=== PATIENT | female | born 1935 | race Asian ===

== ENCOUNTER 2020-09-18 11:53 | Emergency (ER) | payer MEDICARE, OTHER ==
[~2020-09-18] VITALS: Ht 154.9 cm; Wt 63.6 kg
[2020-09-18] MEDS ORDERED: CARV3 PO (11:59)
[2020-09-18] MEDS ORDERED: AMLO-257 PO (11:59)
[2020-09-18] MEDS ORDERED: LOSA25TA21 PO (11:59)
[2020-09-18 12:31] LABS: PLATELET COUNT (AUTO) 192 K/uL (150-450)
[2020-09-18 12:48] LABS: CALCIUM, TOTAL 9.4 mg/dL (8.8-10.5); CREATININE 1.02 mg/dL (0.60-1.30); POTASSIUM 4.3 mmol/L (3.5-5.1)
[2020-09-18 12:51] LABS: ALBUMIN 4.3 g/dL (3.4-5.0); BILIRUBIN,TOTAL 0.5 mg/dL (0.1-1.0); TOTAL PROTEIN, SERUM 8.8 g/dL (6.4-8.2)
[2020-09-18 12:54] LABS: BASOPHILS % (AUTO) 0.9 % (0.0-2.0); EOSINOPHILS % (AUTO) 1.2 % (1.0-6.0); HEMATOCRIT 41.7 % (36-46); HEMOGLOBIN 14.1 g/dL (12.0-16.0); LYMPHOCYTES % (AUTO) 27.9 % (22.0-44.0); MEAN CORPUSCULAR HEMOGLOBIN 30.4 pg (26.0-34.0); MEAN CORPUSCULAR HGB CONC 33.7 G/dL (31.0-37.0); MEAN CORPUSCULAR VOLUME 90 fL (80-100); MONOCYTES # (AUTO) 0.7 K/uL (0.1-1.0); MONOCYTES % (AUTO) 9.1 % (2.0-9.0); NEUTROPHILS # (AUTO) 4.4 K/uL (1.8-7.7); NEUTROPHILS % (AUTO) 60.9 % (40.0-70.0); RED BLOOD CELL COUNT(AUTO) 4.64 MIL/uL (4.00-5.20); RED CELL DISTRIBUTION WIDTH 14.6 % (11.5-14.5)
[2020-09-18 13:03] VITALS: BP 173/87
== END 2020-09-18 13:22 | disposition home or self-care (01) ==
LOC: EMS 12:06
DX: R60.0 Localized edema (principal); I10 Essential (primary) hypertension; Z88.0 Allergy status to penicillin; Z79.899 Other long term (current) drug therapy
CPT/HCPCS: 71045; 80053; 85025; 99284; 36415-L1; 36415-TC